=== PATIENT | female | born 1985 ===

== ENCOUNTER 2017-08-22 13:21 | Emergency (ER) | payer MEDICAID ==
[2017-08-22 13:57] VITALS: BP 112/75; PULSE 86; RESP 16; TEMP 98.4; O2SAT 100
--- NOTE | 2017-08-22 14:56 | ED PDOC ---
HPI: Abdomen Time Seen by Provider: 08/22/17 14:04 Chief Complaint (Nursing): GI Problem Chief Complaint (Provider): Abdominal pain History Per: Patient History/Exam Limitations: no limitations Onset/Duration Of Symptoms: Days (x2 weeks) Current Symptoms Are (Timing): Still Present Quality Of Discomfort: "Pain" Associated Symptoms: Nausea, Vomiting, Diarrhea. denies: Fever, Chills, Urinary Symptoms Additional Complaint(s): Charley Fajardo is a 31 year old female, with no significant past medical history, who presents to the emergency department complaining of constant abdominal pain associated with nausea, vomiting and diarrhea onset for x2 weeks. She denies any fever, chills, or urinary symptoms. No further medical complaints. PMD: None provided. Past Medical History Reviewed: Historical Data, Nursing Documentation, Vital Signs Vital Signs: Last Vital Signs Temp 98.4 F 08/22/17 13:55 Pulse 86 08/22/17 13:55 Resp 16 08/22/17 13:55 BP 112/75 08/22/17 13:55 Pulse Ox 100 08/22/17 15:00 - Medical History PMH: Hypothyroidism - Surgical History Surgical History: No Surg Hx - Family History Family History: States: No Known Family Hx - Social History Current smoker - smoking cessation education provided: No Alcohol: Social Drugs: Denies - Home Medications Home Medications: Ambulatory Orders Medication Instructions Recorded Ibuprofen [Motrin] 600 mg PO Q6H PRN #20 tab 08/22/17 Nitrofurantoin Macrocrystals 100 mg PO BID #13 cap 08/22/17 [Macrobid] - Allergies Allergies/Adverse Reactions: Allergies Allergy/AdvReac Type Severity Reaction Status Date / Time No Known Allergies Allergy Verified 08/22/17 13:55 Review of Systems ROS Statement: Except As Marked, All Systems Reviewed And Found Negative Constitutional: Negative for: Fever, Chills Gastrointestinal: Positive for: Nausea, Vomiting, Abdominal Pain, Diarrhea Genitourinary Female: Negative for: Dysuria, Frequency, Incontinence, Hematuria Physical Exam - Reviewed Nursing Documentation Reviewed: Yes Vital Signs Reviewed: Yes - Physical Exam Appears: Positive for: Non-toxic, No Acute Distress Head Exam: Positive for: ATRAUMATIC, NORMAL INSPECTION, NORMOCEPHALIC Skin: Positive for: Normal Color, Warm, Dry Eye Exam: Positive for: Normal appearance, EOMI, PERRL Neck: Positive for: Painless ROM, Supple Cardiovascular/Chest: Positive for: Regular Rate, Rhythm. Negative for: Murmur Respiratory: Positive for: Normal Breath Sounds. Negative for: Respiratory Distress Gastrointestinal/Abdominal: Positive for: Tenderness (RUQ w/ positive Rooney's sign) Back: Positive for: Normal Inspection. Negative for: L CVA Tenderness, R CVA Tenderness, Vertebral Tenderness Extremity: Positive for: Normal ROM (upper and lower ). Negative for: Tenderness, Deformity, Swelling Neurologic/Psych: Positive for: Alert, Oriented - Laboratory Results Result Diagrams: 08/22/17 15:34 08/22/17 15:34 - ECG O2 Sat by Pulse Oximetry: 100 (RA) Pulse Ox Interpretation: Normal - Progress Re-evaluation Time: 16:50 Condition: Improved (On reexamination, mild RUQ tenderness, no RLQ tenderness.) Medical Decision Making Medical Decision Making: Initial Impression: Abdominal pain Initial Plan: --Urine --Urine dipstick --Reevaluation ~ Scribe Attestation: Documented by River Stearns, acting as a scribe for Mikaela Vale MD. Provider Scribe Attestation: All medical record entries made by the Scribe were at my direction and personally dictated by me. I have reviewed the chart and agree that the record accurately reflects my personal performance of the history, physical exam, medical decision making, and the department course for this patient. I have also personally directed, reviewed, and agree with the discharge instructions and disposition. Disposition - Clinical Impression Clinical Impression: Abdominal pain, UTI (urinary tract infection) - Disposition Referrals: [facility] [Outside] Disposition: Routine/Home Disposition Time: 16:51 Condition: IMPROVED Prescriptions: Ibuprofen [Motrin] 600 mg PO Q6H PRN #20 tab PRN Reason: Pain, Moderate (4-7) Nitrofurantoin Macrocrystals [Macrobid] 100 mg PO BID #13 cap Instructions: Urinary Tract Infections in Adults, Acute Abdomen (Belly Pain) Forms: [facility] (Hebrew)
[2017-08-22] MEDS ORDERED: Sodium Chloride 0.9% 1,000 ML IV STA (14:57)
[2017-08-22 15:47] LABS: BASO % 0.2 % (0.0-2.0); EOS % 0.1 % (0.0-4.0); HEMOGLOBIN 13.5 g/dL (12.0-16.0); INR 0.9 (0.9-1.2); LYMPH # 0.6 K/uL (1.0-4.3); LYMPH % 15.4 % (20.0-40.0); MEAN CELL VOLUME 89.5 fl (81.0-99.0); MEAN CORPUSCULAR HEMOGLOBIN 30.1 pg (27.0-31.0); MEAN CORPUSCULAR HGB CONC 33.6 g/dL (33.0-37.0); MEAN PLATELET VOLUME 9.7 fl (7.2-11.7); MONO # 0.4 K/uL (0.0-0.8); MONO % 9.8 % (0.0-10.0); NEUT # 3.1 K/uL (1.8-7.0); NEUT % 74.5 % (50.0-75.0); NRBC % 0.1 % (0.0-0.0); RBC 4.48 Mil/uL (3.80-5.20); RED CELL DISTRIBUTION WIDTH 13.1 % (11.5-14.5); WHITE BLOOD COUNT 4.1 K/uL (4.8-10.8)
[2017-08-22 16:07] LABS: SQUAMOUS EPITHIAL 1 /hpf (0-5); URINE BILIRUBIN NEGATIVE (NEGATIVE); URINE BLOOD LARGE (NEGATIVE); URINE CLARITY SLIGHTY-CLOUDY (Clear); URINE COLOR YELLOW (YELLOW); URINE GLUCOSE (UA) NEG (Normal); URINE LEUKOCYTE ESTERASE NEG Leu/uL (Negative); URINE PROTEIN NEGATIVE (NEGATIVE); URINE UROBILINOGEN 0.2-1.0 mg/dL (0.2-1.0)
[2017-08-22 16:11] LABS: URINE BACTERIA FEW (<OCC)
[2017-08-22 16:12] LABS: ALB/GLOB RATIO 1.1 (1.0-2.1); ALT/SGPT 40 U/L (9-52); AST/SGOT 35 U/L (14-36); BLOOD UREA NITROGEN 14 mg/dl (7-17); CALCIUM 9.1 mg/dL (8.4-10.2); GFR AFRICAN-AMERICAN > 60; GFR NON-AFRICAN AMERICAN > 60; LIPASE 90 U/L (23-300)
--- NOTE | 2017-08-22 16:29 | US ---
HISTORY: RUQ pain, vomiting, diarrhea COMPARISON: None. TECHNIQUE: Sonographic evaluation of the right upper quadrant of the abdomen. FINDINGS: LIVER: Measures 12.8 cm in length. Normal echogenicity of the liver parenchyma. No mass. No intrahepatic bile duct dilatation. GALLBLADDER: Unremarkable. No gallstones. No ancillary signs of acute cholecystitis. COMMON BILE DUCT: Measures 3.4 mm. No stones. No dilatation. PANCREAS: Not visualized due to prominent bowel gas. RIGHT KIDNEY: Measures 12.0 x 3.7 x 4.7 cm in length. Normal echogenicity. No calculus, mass, or hydronephrosis. AORTA: No aneurysmal dilatation. IVC: Unremarkable. OTHER FINDINGS: None . IMPRESSION: No gallbladder pathology noted. Pancreas not visualized due to prominent bowel gas.
== END 2017-08-22 17:56 | disposition home or self-care (01) ==
LOC: H.ER 13:21
DX: N39.0 Urinary tract infection, site not specified (principal); E03.9 Hypothyroidism, unspecified
CPT/HCPCS: 76705; 80053; 81003; 81025; 83690; 85025; 85610; 85730; 96374; 99284; J2270; J7040

== ENCOUNTER 2017-12-09 15:47 | Emergency (ER) | payer MEDICAID ==
[2017-12-09] MEDS ORDERED: Sodium Chloride 0.9% 1,000 ML IV STA (16:29)
--- NOTE | 2017-12-09 16:30 | ED PDOC ---
Syncope/Near Syncope/Dizziness Time Seen by Provider: 12/09/17 16:00 Chief Complaint (Nursing): Weakness/Neurological Deficit Chief Complaint (Provider): syncope History Per: Patient Additional Complaint(s): Pt is a 31 yo female,, currently 8 weeks , who presents to ED with complaints of c/o "numbness rt side of body x 3 days. " Pt reports intermittent episodes of her right wrist and right foot. No abdominal pain, no vaginal bleeding. no headache or dizziness, no vertigo no alterations in vision or speech. Past Medical History Reviewed: Nursing Documentation, Vital Signs Vital Signs: Last Vital Signs Temp 98 F 12/09/17 16:01 Pulse 76 12/09/17 16:01 Resp 18 12/09/17 16:01 BP 106/69 12/09/17 16:01 Pulse Ox 99 12/09/17 16:01 - Medical History PMH: Hypothyroidism - Family History Family History: States: Unknown Family Hx - Living Arrangements Living Arrangements: With Family - Social History Current smoker - smoking cessation education provided: No Alcohol: None Drugs: Denies - Home Medications Home Medications: Ambulatory Orders Medication Instructions Recorded Ibuprofen [Motrin] 600 mg PO Q6H PRN #20 tab 08/22/17 Nitrofurantoin Macrocrystals 100 mg PO BID #13 cap 08/22/17 [Macrobid] Ondansetron ODT [Zofran ODT] 4 mg PO Q6 PRN #10 odt 12/09/17 - Allergies Allergies/Adverse Reactions: Allergies Allergy/AdvReac Type Severity Reaction Status Date / Time No Known Allergies Allergy Verified 12/09/17 16:11 Review of Systems ROS Statement: Except As Marked, All Systems Reviewed And Found Negative Neurological: Positive for: Numbness Physical Exam - Reviewed Nursing Documentation Reviewed: Yes Vital Signs Reviewed: Yes - Physical Exam Appears: Positive for: Well, Non-toxic, No Acute Distress Head Exam: Positive for: ATRAUMATIC, NORMAL INSPECTION, NORMOCEPHALIC Skin: Positive for: Normal Color, Warm, DRY Eye Exam: Positive for: EOMI, Normal appearance, PERRL ENT: Positive for: Normal ENT Inspection Neck: Positive for: Normal, Painless ROM Cardiovascular/Chest: Positive for: Regular Rate, Rhythm Respiratory: Positive for: CNT, Normal Breath Sounds Gastrointestinal/Abdominal: Positive for: Normal Exam, Soft Back: Positive for: Normal Inspection Extremity: Positive for: Normal ROM Neurologic/Psych: Positive for: Alert, Oriented - Laboratory Results Result Diagrams: 12/09/17 16:53 12/09/17 16:53 - ECG O2 Sat by Pulse Oximetry: 99 Medical Decision Making Medical Decision Making: CBC amd COMP resulted WNL bETA: [id number] IMPRESSION: Early live IUP with no complication. Large hypervascular solid left adnexal mass , further evaluation needed. Pt educated on all result and demonstrated full understanding. Pt offers no physical complaints at this time. no "numbness or tingling" sensations, Pt able to walk without difficulty. Neuro exam remains intact, non focal. Pt stable for discharge at this time, advised to follow up with OB. return to ED with any concerns. Disposition - Clinical Impression Clinical Impression: - Patient ED Disposition Is Patient to be Admitted: No - Disposition Disposition: Routine/Home Disposition Time: 11:16 Condition: STABLE Prescriptions: Ondansetron ODT [Zofran ODT] 4 mg PO Q6 PRN #10 odt PRN Reason: Nausea/Vomiting Instructions: How to Adapt to Physical Changes During Forms: [employer] (Bolivian), [facility] School/Work Excuse - POA Present On Arrival: None
[2017-12-09 16:59] LABS: BASO % 0.5 % (0.0-2.0); EOS % 0.5 % (0.0-4.0); HEMOGLOBIN 13.2 g/dL (12.0-16.0); LYMPH # 1.9 K/uL (1.0-4.3); LYMPH % 23.9 % (20.0-40.0); MEAN CELL VOLUME 87.9 fl (81.0-99.0); MEAN CORPUSCULAR HGB CONC 35.2 g/dL (33.0-37.0); MEAN PLATELET VOLUME 9.1 fl (7.2-11.7); MONO # 0.7 K/uL (0.0-0.8); MONO % 9.4 % (0.0-10.0); NEUT # 5.1 K/uL (1.8-7.0); NEUT % 65.7 % (50.0-75.0); NRBC % 0.1 % (0.0-0.0); RBC 4.26 Mil/uL (3.80-5.20); RED CELL DISTRIBUTION WIDTH 12.8 % (11.5-14.5); WHITE BLOOD COUNT 7.8 K/uL (4.8-10.8)
[2017-12-09 17:41] LABS: ALB/GLOB RATIO 1.3 (1.0-2.1); ALT/SGPT 21 U/L (9-52); AST/SGOT 25 U/L (14-36); BLOOD UREA NITROGEN 7 mg/dl (7-17); CALCIUM 9.2 mg/dL (8.4-10.2); GFR NON-AFRICAN AMERICAN > 60
[2017-12-09 17:54] LABS: SQUAMOUS EPITHIAL 9 /hpf (0-5); URINE BILIRUBIN NEGATIVE (NEGATIVE); URINE BLOOD NEGATIVE (NEGATIVE); URINE CLARITY CLOUDY (Clear); URINE COLOR YELLOW (YELLOW); URINE GLUCOSE (UA) NEG (Normal); URINE LEUKOCYTE ESTERASE MOD Leu/uL (Negative); URINE PROTEIN NEGATIVE (NEGATIVE); URINE UROBILINOGEN 0.2-1.0 mg/dL (0.2-1.0)
[2017-12-09 20:21] VITALS: BP 111/56; PULSE 78; RESP 14; TEMP 98.5
--- NOTE | 2017-12-10 10:56 | US ---
Date of service: 12/09/2017 PROCEDURE: First trimester ultrasound HISTORY: presenting with pain COMPARISON: None available. TECHNIQUE: Standard protocol for this study/examination. FINDINGS: LMP: 10/15/2017. Prior examinations from the current : None TECHNIQUE: Real-time 2D imaging, duplex and color Doppler. FINDINGS: Cardiac activity: Present Rate: 143 BPM Measurements: [place] rump length: 1.28 cm Gestational age based on CRL 7 weeks 3 days Gestational age 7 weeks 5 days based on gestational sac measurement 2.88 cm Gestational age derived from LMP: 7 weeks 6 days MIKE based on LMP: 07/22/2018 MIKE based on biometry: 07/24/2018. Gestational concordance documented Yolk sac identified Uterus: Unremarkable. Cervix: No Cervical abnormalities: Negative examination for cervical dilatation or effacement. Closed cervix Subchorionic hemorrhage: None UTERUS: 7 x 7.6 x 11.2 cm. ADNEXA: Right: 4 x 4.1 x 5.5 cm. Simple cyst 2.6 x 2.9 x 3.1 cm. Normal Doppler arterial waveform documented. Left: 1.4 x 2.5 x 3.6 cm. Solid mass 3.6 x 5.6 x 6.3 cm. Overall appearance is consistent with but not diagnostic of endometrioma. Normal Doppler arterial waveform documented Fluid in the cul-de-sac: None IMPRESSION: Seven weeks 4 days live intrauterine gestation. Gestational concordance documented. Simple cyst presumed corpus luteum cyst right adnexa. Solid hypervascular mass left adnexa possibly endometrioma. Concordant results (preliminary interpretation) provided by Gigi Hill. Procedure Completed: 18:02. Preliminary ([employer]) Report: Dictated and Authenticated: 19:44. Final Interpretation: 10:53. December 10, 2017.
--- NOTE | 2017-12-10 17:47 | CARD ---
APPROVED REPORT Date of service: 12/09/2017 EKG Measurement Heart [id number] MD [id number] <Conclusion> Normal sinus rhythm Normal ECG
[2017-12-16 11:12] VITALS: O2SAT 99
== END 2017-12-09 20:21 | disposition home or self-care (01) ==
LOC: H.ER 15:47
DX: O99.280 Endocrine, nutritional and metabolic diseases complicating pregnancy, unspecified trimester (principal)
CPT/HCPCS: 76817; 80053; 81003; 84484; 84702; 85025; 93005; 96374; 99284; J2405; J7030

== ENCOUNTER 2018-05-30 16:37 | Emergency (ER) | payer MEDICAID ==
[2018-05-30 17:50] VITALS: BMI 33.6
[2018-05-30 18:22] LABS: BASO % 0.3 % (0.0-2.0); EOS % 0.3 % (0.0-4.0); HEMOGLOBIN 11.2 g/dL (12.0-16.0); LYMPH # 1.4 K/uL (1.0-4.3); LYMPH % 17.5 % (20.0-40.0); MEAN CELL VOLUME 89.6 fl (81.0-99.0); MEAN CORPUSCULAR HEMOGLOBIN 30.9 pg (27.0-31.0); MEAN CORPUSCULAR HGB CONC 34.5 g/dL (33.0-37.0); MEAN PLATELET VOLUME 10.2 fl (7.2-11.7); MONO # 0.5 K/uL (0.0-0.8); MONO % 5.6 % (0.0-10.0); NEUT # 6.2 K/uL (1.8-7.0); NEUT % 76.3 % (50.0-75.0); RBC 3.62 Mil/uL (3.80-5.20); RED CELL DISTRIBUTION WIDTH 13.1 % (11.5-14.5); WHITE BLOOD COUNT 8.2 K/uL (4.8-10.8)
[2018-05-30 18:44] LABS: AMYLASE 104 U/L (30-110); BLOOD UREA NITROGEN 11 mg/dl (7-17); CALCIUM 8.6 mg/dL (8.4-10.2); GFR NON-AFRICAN AMERICAN > 60; LIPASE 92 U/L (23-300)
[2018-05-30 18:45] LABS: SQUAMOUS EPITHIAL 3 /hpf (0-5); URINE BACTERIA RARE (<OCC); URINE BILIRUBIN NEGATIVE (NEGATIVE); URINE BLOOD NEGATIVE (NEGATIVE); URINE CLARITY SLIGHTY-CLOUDY (Clear); URINE COLOR YELLOW (YELLOW); URINE GLUCOSE (UA) NEG (NEGATIVE); URINE LEUKOCYTE ESTERASE NEG Leu/uL (Negative); URINE PROTEIN NEGATIVE (NEGATIVE)
[2018-05-30 18:58] LABS: ALBUMIN 3.5 g/dL (3.5-5.0); ALT/SGPT 21 U/L (9-52); AST/SGOT 34 U/L (14-36)
--- NOTE | 2018-05-30 19:05 | US ---
Date of service: 05/30/2018 HISTORY: r/o gallbladder disease, COMPARISON: Limited abdominal ultrasound performed 08/22/17 TECHNIQUE: Sonographic evaluation of the right upper quadrant of the abdomen. FINDINGS: Technically limited sonographic images. LIVER: Measures 14.6 cm in length and appears within normal limits of shape and echotexture. No focal hepatic mass identified. The main portal vein appears patent with normal directional flow. No intrahepatic bile duct dilatation. GALLBLADDER: Contracted gallbladder. Gallbladder sludge. No discrete gallstones appreciated however limited evaluation due to contracted state and presence of sludge. No gallbladder wall thickening or pericholecystic edema. Negative sonographic Rooney's sign as assessed by the nib inspector. COMMON BILE DUCT: Measures 3 mm. PANCREAS: Not well-visualized. RIGHT KIDNEY: Measures approximately 11.5 x 4.5 x 5.2 cm. Mild hydronephrosis. No obstructing calculus identified. AORTA: Limited visualization appears grossly unremarkable. IVC: Limited visualization appears grossly unremarkable. OTHER FINDINGS: None . IMPRESSION: Limited study. Mild hydronephrosis. No obstructing calculus identified. Contracted gallbladder. Gallbladder sludge. No discrete gallstones appreciated however limited evaluation due to contracted state and presence of sludge. No gallbladder wall thickening or pericholecystic edema. Negative sonographic Rooney's sign as assessed by the nib inspector.
[2018-05-31 01:05] VITALS: BP 113/71; PULSE 81
--- NOTE | 2018-05-31 08:46 | OBHP ---
Datetime: 05/30/2018 17:30 IP Adm Impression: , intrauterine ; No Active Labor IP Admit Plan: Observation/Evaluation Admit Comment, IP Provider: 32 y/o female at 32.2 wk GA presents to [facility] w/ c/o intermittent left and right upper quadrant pain, radiating to bilateral upper back, persisting for 3 weeks, and w orsened today. She states that the pain is 7/10 in severity, associated w/ one episode of non-bloody vomiting today, and non-bloody diarrhea and constipation. Pain worse w/ eating, improves w/ lying harpal n. She denies CP, SOB, urinary symptoms. She denies VB, VFL, CXTs. Endorses movement. Of note, patient had similar symptoms prior to and was advised by PMD to follow up w/ [place] steroenterologist, but did not do so. [facility]: [facility] Pmhx: hypothyroidism OBhx: 1 @ 34wks in 2009 Famhx: MOther w/ DM and fibromyalgia, Father w/ alzheimer's SurgHx: denies SocialHx: denies toxic habits HomeRx: vitamins Allergies: NKDA ROS: negative except per HPI Physical Exam: Gen: lying in bed comfortably Heart: S1 S2 present, RRR Lungs: normal resp effort, clear to auscultation bilaterally Abd: Gravid, normal bowel sounds, right upper quadrant tenderness, no guarding SVE: (By Dr. Ledezma) closed cervix Extremities: no tenderness/erythema/swelling Assessment and Plan: 32 y/o female at 32.2 wk GA c/o abdominal pain SVE: closed cervix, TOCO no contractions; no active labor Will check CBC/CMP, Lipase, amylase, U/A, GB U/S Case discussed w/ attending, Dr. Brisa Conteh, pgyi Pelvic Type - PN: Adequate Extremities - PN: Normal Abdomen - PN: Abnormal Back - PN: Not Done Breast - PN: Not Done Lungs - PN: Normal Heart - PN: Normal Thyroid - PN: Not Done Neurologic - PN: Not Done HEENT - PN: Not Done General - PN: Normal FHR - Baseline A Provider: 135 Contraction Comments Provider: none Gestation - Est Wks by US: 32.2 EGA AdmitDate IP: 32.2 IP Chief Complaint: Other NICHD Variability Prov Fetus A: Moderate 6-25bpm NICHD Accel Fetus A IP Provider: [id number] FHR Category Provider Fetus A: Category I NICHD Decel Fetus A IP Provider: None Dilatation, Provider: 0 Genitourinary Exam: Not Done DTRs - PN: Not Done
== END 2018-05-30 20:02 | disposition home or self-care (01) ==
LOC: H.EROB2 16:37
DX: O26.93 Pregnancy related conditions, unspecified, third trimester (principal); R10.2 Pelvic and perineal pain; M54.6 Pain in thoracic spine; Z3A.32 32 weeks gestation of pregnancy